=== PATIENT | female | born 1965 | race African-American/Black ===

== ENCOUNTER 2019-09-01 13:28 | Emergency (ER) | payer MEDICARE, OTHER ==
[~2019-09-01] VITALS: Ht 167.6 cm; Wt 73.5 kg
--- NOTE | 2019-09-01 13:36 | Emergency Room Report ---
History of Present Illness General Chief Complaint: Generalized Weakness Source: Patient, EMS Present Illness HPI Patient presents with altered level of consciousness. 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 Paramedics found blood glucose of 126. In discussion with the patient's son over the phone she has a history of this happening once in the past. He thought it was due to low iron. The patient received something in the doctor's office and improved. The patient is slow to respond and seems to be a poor historian. She does say "yes" to most questions. She does agree that she has had liver problems in the past. (denied later when OX3) Further history obtained when patient fully awake and alert. 15:06. She has occasional headaches. There is no headache preceding this event. She complains about forearm pain. Her doctor has been treating her with Soma. She was only had a prescription for 15. This pain in her forearms is been going on for at least a month. Aching pain. She does not give a numerical value to the pain. She is rubbing her upper arm. Left arm more painful than right. No fevers, chills, sore throat, chest pain, palpitations, nausea, vomiting, diarrhea, dysuria, abdominal pain, shortness of breath, rashes, depression, anxiety, dizziness. 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 Now: No Reviewed Nursing Documentation: PMH: Agreed; PSxH: Agreed Review of Systems All Other Systems: negative except mentioned in HPI Physical Exam Vital Signs Date Time Temp Pulse Resp B/P (MAP) Pulse Ox O2 Delivery O2 Flow Rate FiO2 09/01/19 13:24 97.9 129 18 144/88 (106) 97 Room Air Sp02 EP Interpretation: reviewed, normal General Appearance: non-toxic, other - Leggett Coma Scale 13 Head: normocephalic, atraumatic Eyes: bilateral eye PERRL, bilateral eye abnormal EOM - will not cooperate with commands ENT: moist mucus membranes - no lingual macerations Neck: supple Respiratory: lungs clear, normal breath sounds Cardiovascular #1: regular rate, rhythm, no edema Cardiovascular #2: 2+ radial (L) Gastrointestinal: normal bowel sounds, non tender Genitourinary: no CVA tenderness Musculoskeletal: digits/nails normal, tender - Left forearm no deformity or swelling Neurologic: DTRs symmetric, sensory intact, motor weakness - Generalized, responsive - Minimally slow to respond and perseveration, no focal defects, other - Asterixis versus subtle repetitive muscle jerks in hands and fasciculations left lower lip Psychiatric: depressed affect - Slow to respond Skin: no rash, warm/dry Medical Decision Making Diagnostic Impression: Primary Impression: Encephalopathy acute Additional Impressions: R/O partial complex seizure Renal insufficiency ER Course Patient presents with altered mental status. Differential includes bleed, occult infection, hepatic encephalopathy, other forms of encephalopathy, electrolyte imbalance amongst others. Patient will be evaluated with EKG, CT of the head, chest x-ray and labs. Patient will receive IV hydration. If it is hepatic encephalopathy lactulose will be ordered. Patient is placed on a airport electrician. EKG without injury. Clear. CT head unremarkable. White count normal. Minimal anemia. Elevated creatinine. Patient oriented. She does not remember coming to the hospital. She does not know why this happened before. Considerations for partial complex seizures. Patient needs neurologic evaluation and possible EEG. Patient needs telemetry. Urine + for opiates. The clinical presentation is against this being the primary etiology of the ALOC. Patient somewhat anxious and states she wants to go home. Told risk of due to altered mentation. Told need for hospitalization, observation and further evaluation. Signed out to Dr. Garcia. Laboratory Tests Test 09/01/19 13:45 09/01/19 14:30 White Blood Count 6.2 K/UL (4.8-10.8) Red Blood Count 3.96 M/UL (4.20-5.40) L Hemoglobin 12.4 G/DL (12.0-16.0) Hematocrit 36.6 % (37.0-47.0) L Mean Corpuscular Volume 92 FL (80-99) Mean Corpuscular Hemoglobin 31.3 PG (27.0-31.0) H Mean Corpuscular Hemoglobin Concent 33.9 G/DL (32.0-36.0) Red Cell Distribution Width 11.2 % (11.6-14.8) L Platelet Count 314 K/UL (150-450) Mean Platelet Volume 5.9 FL (6.5-10.1) L Neutrophils (%) (Auto) 52.9 % (45.0-75.0) Lymphocytes (%) (Auto) 40.5 % (20.0-45.0) Monocytes (%) (Auto) 4.3 % (1.0-10.0) Eosinophils (%) (Auto) 0.7 % (0.0-3.0) Basophils (%) (Auto) 1.7 % (0.0-2.0) Sodium Level 143 MMOL/L (136-145) Potassium Level 3.6 MMOL/L (3.5-5.1) Chloride Level 106 MMOL/L (98-107) Carbon Dioxide Level 27 MMOL/L (21-32) Anion Gap 10 mmol/L (5-15) Blood Urea Nitrogen 15 mg/dL (7-18) Creatinine 1.4 MG/DL (0.55-1.30) H Estimate Glomerular Filtration Rate 39.3 mL/min (>60) Glucose Level 121 MG/DL (74-106) H Lactic Acid Level 1.60 mmol/L (0.4-2.0) Calcium Level 8.6 MG/DL (8.5-10.1) Total Bilirubin 0.2 MG/DL (0.2-1.0) Aspartate Amino Transferase (AST) 17 U/L (15-37) Alanine Aminotransferase (ALT) 26 U/L (12-78) Alkaline Phosphatase 84 U/L (46-116) Ammonia 15 umol/L (11-32) Total Creatine Kinase 220 U/L (26-308) Troponin I 0.000 ng/mL (0.000-0.056) Total Protein 7.3 G/DL (6.4-8.2) Albumin 3.8 G/DL (3.4-5.0) Globulin 3.5 g/dL Albumin/Globulin Ratio 1.1 (1.0-2.7) Salicylates Level 1.5 ug/mL (2.8-20) L Acetaminophen Level 19 MCG/ML (10-30) Serum Alcohol < 3 mg/dL Urine Color Yellow Urine Appearance Clear Urine pH 5 (4.5-8.0) Urine Specific [place]ushing 1.025 (1.005-1.035) Urine Protein 1+ (NEGATIVE) H Urine Glucose (UA) Negative (NEGATIVE) Urine Ketones 1+ (NEGATIVE) H Urine Blood 1+ (NEGATIVE) H Urine Nitrite Negative (NEGATIVE) Urine Bilirubin Negative (NEGATIVE) Urine Urobilinogen Normal MG/DL (0.0-1.0) Urine Leukocyte Esterase Negative (NEGATIVE) Urine RBC 2-4 /HPF (0 - 2) H Urine WBC 0-2 /HPF (0 - 2) Urine Squamous Epithelial Cells Moderate /LPF (NONE/OCC) H Urine Calcium Oxalate Crystals Few /LPF (NONE) Urine Bacteria Few /HPF (NONE) Urine Opiates Screen Positive (NEGATIVE) H Urine Barbiturates Screen Negative (NEGATIVE) Phencyclidine (PCP) Screen Negative (NEGATIVE) Urine Amphetamines Screen Negative (NEGATIVE) Urine Benzodiazepines Screen Negative (NEGATIVE) Urine Cocaine Screen Negative (NEGATIVE) Urine Marijuana (THC) Screen Negative (NEGATIVE) EKG Diagnostic Results Rate: normal Rhythm: NSR ST Segments: no acute changes - Left atrial enlargement nonspecific ST-T wave changes Rhythm Strip Diag. Results Rhythm: NSR, no PVC's, no ectopy Chest X-Ray Diagnostic Results Chest X-Ray Diagnostic Results : Chest X-Ray Ordered: Yes # of Views/Limited/Complete: 1 View Indication: Other EP Interpretation: Yes Interpretation: no consolidation, no effusion, no pneumothorax Impression: No acute disease Electronically Signed by: Electronically signed by Oscar Rodriguez MD CT/MRI/US Diagnostic Results CT/MRI/US Diagnostic Results : Imaging Test Ordered: Head Impression No bleed or mass-effect Last Vital Signs Date Time Temp Pulse Resp B/P (MAP) Pulse Ox O2 Delivery O2 Flow Rate FiO2 09/01/19 18:34 97.8 89 18 129/81 98 Room Air 97 Status: improved Disposition: AGAINST MEDICAL ADVICE Condition: Serious Scripts No Active Prescriptions or Reported Meds Oscar Rodriguez MD Sep 01, 2019 13:36
[2019-09-01 13:48] VITALS: BP 144/88
--- NOTE | 2019-09-01 13:50 | NUR ---
ED Nurse Note: pt brought in to ER by ambulance from school due to generalized weakness. pt aao x 1 at this moment and unable to ambulate. lethargic and drowsy but vital signs stable as documented. pt denied head trauma. skin clean and intact. no cardiac or pulmonary distress noted at this time. pt is in gown and on director of cardiac rehabilitation.
--- NOTE | 2019-09-01 13:56 | NUR ---
ED Nurse Note: COLLECTED BLOOD THEN SENT.
--- NOTE | 2019-09-01 14:06 | NUR ---
ED Nurse Note: pt came back from CT scan.
[2019-09-01 14:12] LABS: BASOPHILS % (AUTO) 1.7 % (0.0-2.0); EOSINOPHILS % (AUTO) 0.7 % (0.0-3.0); HEMATOCRIT 36.6 % (37.0-47.0); HEMOGLOBIN 12.4 G/DL (12.0-16.0); LYMPHOCYTES % (AUTO) 40.5 % (20.0-45.0); MEAN CORPUSCULAR VOLUME 92 FL (80-99); MONOCYTES % (AUTO) 4.3 % (1.0-10.0); NEUTROPHILS % (AUTO) 52.9 % (45.0-75.0); PLATELET COUNT 314 K/UL (150-450); RED BLOOD COUNT 3.96 M/UL (4.20-5.40); RED CELL DISTRIBUTION WIDTH 11.2 % (11.6-14.8); WHITE BLOOD COUNT 6.2 K/UL (4.8-10.8)
[2019-09-01 14:29] LABS: ANION GAP 10 mmol/L (5-15); BLOOD UREA NITROGEN 15 mg/dL (7-18); CALCIUM 8.6 MG/DL (8.5-10.1); CARBON DIOXIDE 27 MMOL/L (21-32); CHLORIDE 106 MMOL/L (98-107); CREATININE 1.4 MG/DL (0.55-1.30); POTASSIUM 3.6 MMOL/L (3.5-5.1); SODIUM 143 MMOL/L (136-145)
--- NOTE | 2019-09-01 14:30 | Diagnostic Imaging Report ---
Indications: Altered level of consciousness Technique: Spiral acquisitions obtained through the brain. Angled axial and coronal 5 x 5 mm slices were reconstructed. Total dose length product 1424 mGycm. CTDI vol(s) 60 mGy. Dose reduction achieved using automated exposure control Comparison: None. Findings: Intact calvarium. No acute intracranial hemorrhage or edema. No mass effect or midline shift. Normal alvarenga-white differentiation. Visualized orbits and sinuses are unremarkable. The mastoids are clear. The calvarium is intact. Impression: Negative The CT scanner at [facility] is accredited by the [employer] and the scans are performed using protocols designed to limit radiation exposure to as low as reasonably achievable to attain images of sufficient resolution adequate for diagnostic evaluation.
[2019-09-01 14:31] LABS: AMMONIA 15 umol/L (11-32)
[2019-09-01 14:34] LABS: ALANINE AMINOTRANSFERASE 26 U/L (12-78); ALBUMIN 3.8 G/DL (3.4-5.0); ALBUMIN/GLOBULIN RATIO 1.1 (1.0-2.7); ALKALINE PHOSPHATASE 84 U/L (46-116); ASPARTATE AMINO TRANSFERASE 17 U/L (15-37); BILIRUBIN,TOTAL 0.2 MG/DL (0.2-1.0); CREATINE KINASE 220 U/L (26-308)
--- NOTE | 2019-09-01 15:07 | Diagnostic Imaging Report ---
Indication: Cough Technique: One view of the chest Comparison: none Findings: Lungs and pleural spaces are clear. Heart size is normal. Impression: No acute process
[2019-09-01 15:10] LABS: APPEARANCE,URINE CLEAR; BILIRUBIN, URINE NEGATIVE (NEGATIVE); GLUCOSE, URINE (UA) NEGATIVE (NEGATIVE); KETONES,URINE 1+ (NEGATIVE); LEUKOCYTE ESTERASE ,URINE NEGATIVE (NEGATIVE); NITRITE,URINE NEGATIVE (NEGATIVE); PH,URINE 5 (4.5-8.0); PROTEIN,URINE 1+ (NEGATIVE); UROBILINOGEN,URINE NORMAL MG/DL (0.0-1.0)
[2019-09-01 15:19] LABS: COLOR,URINE YELLOW
--- NOTE | 2019-09-01 15:38 | NUR ---
ED Nurse Note: pt wishes to leave. ERMD made aware. ERMD at bedside.
[2019-09-01 15:50] VITALS: BP 136/72
--- NOTE | 2019-09-01 16:32 | NUR ---
ED Nurse Note: family member at bedside.
[2019-09-01 17:50] VITALS: BP 141/75
--- NOTE | 2019-09-01 18:22 | NUR ---
ED Nurse Note: pt wishes to go home. ERMD made aware.
--- NOTE | 2019-09-01 18:24 | NUR ---
ED Nurse Note: pt and ERMD signed on AMA paper.
[2019-09-01 18:34] VITALS: BP 129/81
--- NOTE | 2019-09-01 18:37 | NUR ---
AMA: SEE AMA FORM. Patient provided risk for leaving AMA when pt has uncertain condition which requires staying in hospital and being monitored. pt verbalized understanding and insisted to leave AMA. pt was told to come back for further recurrent conditions. ID band and IV removed. pt signed on AMA with fully understanding.
--- NOTE | 2019-09-02 12:46 | Cardiology Report ---
APPROVED REPORT EKG Measurement Heart [id number] IN [id number] Sinus rhythm with short IN Possible Left atrial enlargement Borderline ECG
== END 2019-09-01 18:39 | disposition left against medical advice (07) ==
LOC: EDBD 13:28 → EMR 14:30 → CANBEDREQ 18:23 → EMR 18:39
DX: G93.40 Encephalopathy, unspecified (principal); N28.9 Disorder of kidney and ureter, unspecified; D64.9 Anemia, unspecified; R51 Headache; M79.632 Pain in left forearm; M79.631 Pain in right forearm
CPT/HCPCS: 36415; 70450; 71045; 80053; 80307; 81003; 82140; 82550; 83605; 84484; 85025; 93005; 99284; G0480